=== PATIENT | male | born 1950 | race Caucasian/White ===

== ENCOUNTER 2021-08-28 03:58 | Inpatient (IN) | payer OTHER, MEDICARE ==
[2021-08-28] VITALS (16 sets, daily range): BP systolic 113–158; BP diastolic 59–90
[~2021-08-28] VITALS: Ht 175.3 cm; Wt 108.2 kg
[2021-08-28 04:29] LABS: BASOPHILS # (AUTO) 0.1 X10'3 (0-0.2); BASOPHILS % (AUTO) 0.5 % (0-1); EOSINOPHILS # (AUTO) 0.3 X10'3 (0-0.9); EOSINOPHILS % (AUTO) 2.7 % (0-6); HEMATOCRIT 41.7 % (42.0-52.0); HEMOGLOBIN 14.3 g/dl (14.0-17.9); LYMPHOCYTES # (AUTO) 1.8 X10'3 (1.1-4.8); LYMPHOCYTES % (AUTO) 17.8 % (21-51); MEAN CORPUSCULAR HEMOGLOBIN 36.2 PG (27.0-31.0); MEAN CORPUSCULAR HGB CONC 34.3 g/dL (33.0-36.5); MEAN CORPUSCULAR VOLUME 105.6 FL (78-98); MEAN PLATELET VOLUME 8.7 FL (7.4-10.4); MONOCYTES # (AUTO) 0.7 X10'3 (0-0.9); MONOCYTES % (AUTO) 7.1 % (2-12); NEUTROPHILS # (AUTO) 7.3 X10'3 (1.8-7.7); NEUTROPHILS % (AUTO) 71.9 % (42-75); PLATELET COUNT 178 X10'3 (140-440); RED BLOOD COUNT 3.95 X10'6 (4.70-6.10); RED CELL DISTRIBUTION WIDTH 13.3 % (11.5-14.5); WHITE BLOOD COUNT 10.1 X10'3 (4.5-11.0)
[2021-08-28] MEDS ORDERED: LIDOcaine 2% 10ml TOPICAL JELLY (Urojet) TP ONE ×2 (04:30→04:40)
[2021-08-28] MEDS ORDERED: METO-467 PO (04:32)
[2021-08-28] MEDS ORDERED: METF-436 PO (04:32)
[2021-08-28 04:40] LABS: APTT 27 SECONDS (22-32)
[2021-08-28] MEDS ORDERED: HYDROmorphone inj. 0.5 MG/0.5 ML DISP.SYRIN IV ONE ×3 (04:50→06:15)
[2021-08-28 04:51] LABS: ALANINE AMINOTRANSFERASE 27 U/L (12-78); ALBUMIN 3.2 G/DL (3.4-5.0); ANION GAP 11 (8-16); ASPARTATE AMINO TRANSFERASE 29 U/L (10-37); BILIRUBIN,TOTAL 0.6 MG/DL (0.1-1.0); BLOOD UREA NITROGEN 12 MG/DL (7-18); BUN/CREATININE RATIO 13.2 (5.4-32.0); CALCIUM 8.3 MG/DL (8.5-10.1); CHLORIDE 109 MMOL/L (99-107); CREATININE 0.91 MG/DL (0.60-1.10); GLUCOSE 135 MG/DL (70-104); MAGNESIUM 1.5 MG/DL (1.5-2.4); POTASSIUM 3.8 MMOL/L (3.5-5.1); SODIUM 145 MMOL/L (135-145); TOTAL CARBON DIOXIDE 25.3 MMOL/L (24-32); TOTAL PROTEIN 6.3 G/DL (6.4-8.2); eGFR 82 ML/MIN
[2021-08-28] MEDS: metoprolol tartrate 1mg/ml inj IV SCH ×6 (05:05→06:20)
[2021-08-28] MEDS ORDERED: thiamine 100mg tablet PO STA (05:05)
[2021-08-28] MEDS ORDERED: thiamine 100mg tablet PO ONE (05:05)
[2021-08-28] MEDS ORDERED: magnesium oxide 400mg tablet PO ONE (05:05)
[2021-08-28] MEDS ORDERED: magnesium 2GM in 50ml NS 50 ML IV ONE ×2 (05:05→05:10)
[2021-08-28] MEDS ORDERED: magnesium 2GM in 50ml NS 50 ML IV PRN (05:15)
[2021-08-28] MEDS ORDERED: magnesium Cl slow-release 64mg tablet PO PRN (05:15)
[2021-08-28] MEDS ORDERED: potassium CL 10mEq/100ml bag 100 ML IV PRN (05:15)
[2021-08-28] MEDS ORDERED: magnesium hydroxide 30ml (MOM) UD suspension PO PRN (05:15)
[2021-08-28] MEDS ORDERED: ondansetron/PF 4mg/2ml inj IV PRN ×2 (05:15→18:30)
[2021-08-28] MEDS ORDERED: potassium Cl 20 mEq SR tablet PO PRN ×2 (05:15)
[2021-08-28] MEDS ORDERED: mag hydrox/Alum hydrox/simeth 30ml oral suspension PO PRN (05:15)
[2021-08-28] MEDS ORDERED: magnesium 4gm in 100ml NS 100 ML IV PRN (05:15)
[2021-08-28] MEDS ORDERED: LORazepam 1 MG tablet PO PRN (05:20)
[2021-08-28] MEDS ORDERED: insulin Lispro (HumaLOG) vial - multi-dose SQ SCH (05:25)
[2021-08-28] MEDS ORDERED: glucagon, human recombinant 1mg kit SUBCUT PRN (05:25)
[2021-08-28] MEDS ORDERED: DEXTROSE 15 GM of carb/4 tabs (each vial/BOTTLE has 4 tablets) PO PRN ×2 (05:25)
[2021-08-28] MEDS ORDERED: metoprolol tartrate 25mg tablet PO ONE (05:25)
[2021-08-28] MEDS ORDERED: MESSAGE TO PHARMACY PO ONE (05:25)
[2021-08-28] MEDS ORDERED: dextrose 50%-water 50ml dispensing syringe IV PRN ×2 (05:25)
[2021-08-28] MEDS: normal saline 1000ml 1,000 ML IV SCH ×2 (05:33→21:55)
--- NOTE | 2021-08-28 07:21 | NUR ---
ACCBOB 125 Addendum: 08/28/21 at 1931 by Caryl Quintana RN RN Amended: Links added.
--- NOTE | 2021-08-28 07:42 | NUR ---
ECHO AT BEDSIDE
[2021-08-28] MEDS ORDERED: metoprolol tartrate 50mg tablet PO SCH (08:00)
[2021-08-28 08:20] LABS: HEMOGLOBIN A1C 6.1 % (4.5-6.2)
[2021-08-28 08:46] LABS: POTASSIUM 3.9 MMOL/L (3.5-5.1)
[2021-08-28] MEDS ORDERED: ringers solution, lacted 1,000 ML IV ONE (09:00)
[2021-08-28] MEDS ORDERED: famotidine/PF 10 mg/ml inj IV ONE (09:05)
--- NOTE | 2021-08-28 11:39 | NUR ---
Paged Dr Tolbert PAGER ID: [phone] MESSAGE: [phone]. Navjot Mcclelland. Allergies: codeine, needs pain medication. Thanks [phone]
[2021-08-28] MEDS: acetaminophen 325mg tablet PO PRN (11:50)
[2021-08-28] MEDS ORDERED: HYDROmorphone inj. 0.5 MG/0.5 ML DISP.SYRIN IV PRN (12:00)
--- NOTE | 2021-08-28 13:28 | NUR ---
D/C'd PIV - infiltrated and was hurting patient. Paged PICC nurse to assist with PIV insertion IZAIAH.
--- NOTE | 2021-08-28 13:34 | NUR ---
Called OR to advise of d/c'd PIV - atttemps x 3 for new one. Will continue to get assistance for PIV insertion.
--- NOTE | 2021-08-28 16:15 | NUR ---
Paged Dr Tolbert PAGER ID: [phone] MESSAGE: [phone]. Navjot Mcclelland. Pt requesting more pain meds - Pain 04/14. Thanks [phone]
[2021-08-28] MEDS ORDERED: HYDROmorphone 1 mg/ml syringe IV PRN (16:25)
[2021-08-28] MEDS ORDERED: MINO10TA16 PO (17:06)
[2021-08-28] MEDS ORDERED: METF-900 PO (17:06)
[2021-08-28] MEDS ORDERED: CARV25TA2 PO (17:06)
[2021-08-28] MEDS ORDERED: MULT-1085 PO (17:06)
[2021-08-28] MEDS ORDERED: CHOL500050 PO (17:06)
[2021-08-28] MEDS ORDERED: fentaNYL /PF 50mcg/ml 5ml ampule ONE (17:54)
[2021-08-28] MEDS ORDERED: LIDOcaine 2% (20mg/ml) 5ml vial ONE (18:18)
[2021-08-28] MEDS ORDERED: propofol inj 20 ML IV ONE (18:18)
[2021-08-28] MEDS ORDERED: rocuronium 10mg/ml inj IV ONE (18:18)
[2021-08-28] MEDS ORDERED: morphine 2 MG/ML inj. syringe IV PRN (18:30)
[2021-08-28] MEDS ORDERED: ringers solution, lacted 1,000 ML IV SCH (18:30)
[2021-08-28] MEDS ORDERED: HYDROmorphone/PF 0.2 MG/ML SYRINGE IV PRN ×2 (18:30)
[2021-08-28] MEDS ORDERED: BUPIVAcaine 0.5% inj/PF 30 ML ONE (18:36)
[2021-08-28] MEDS ORDERED: neostigmine methylsulfate 1 MG/ML 10ml vial ONE (18:37)
[2021-08-28] MEDS ORDERED: glycopyrrolate 0.2mg/ml inj ONE (18:37)
[2021-08-28] MEDS ORDERED: ondansetron/PF 4mg/2ml inj ONE (18:37)
--- NOTE | 2021-08-28 18:52 | NUR ---
Received from OR via HOSPITAL BED, accompanied by Anesthesiologist DR WALDRON and report given by Anesthesiolgist. PT PRESENT WITH 20G RIGHT FOREARM, DRESSING ON LEFT HIP CLEAN DRY AND INTACT. VSS. Addendum: 08/28/21 at 1931 by Caryl Quintana RN, RN Amended: Links added.
[2021-08-28] MEDS ORDERED: sugammadex 200mg/2ml injection IV ONE (18:54)
[2021-08-28] MEDS ORDERED: ceFAZolin 1000mg inj ONE (19:06)
[2021-08-28] MEDS: K and/or MAG REPLACEMENT MC SCH (20:00)
--- NOTE | 2021-08-28 20:12 | NUR ---
Report called to receiving nurse ENRIQUETA BOYLE. Transferred via HOSPITAL BED TO ROOM 3023C WITH PT Belongings LEFT IN PT ROOM 3023C. BED IN LOW LOCKED POSITION WITH CALL LIGHT AND TV IN REACH. special Issues communicated to receiving nurse. Addendum: 08/28/21 at 2025 by Caryl Quintana RN RN Amended: Links added.
[2021-08-28] MEDS: insulin glargine (Lantus) pen - multi-dose SQ SCH (20:52)
[2021-08-28] MEDS: metoprolol tartrate 50mg tablet PO SCH (21:10)
[2021-08-28] MEDS: docusate sod 100mg capsule PO SCH (21:11)
[2021-08-28] MEDS ORDERED: heparin, porcine 5000 units/ml vial SQ SCH (22:00)
[2021-08-28] MEDS: HYDROcodone/acetaminophen 10/325mg tab PO PRN (23:01)
[2021-08-29] VITALS (7 sets, daily range): BP systolic 117–175; BP diastolic 59–95
[2021-08-29] MEDS: ceFAZolin/D5W- 1GM premix 50 ML IV SCH ×2 (00:20→08:00)
--- NOTE | 2021-08-29 06:28 | NUR ---
Problems reprioritized. Patient report given, questions answered & plan of care reviewed with TAMAR Ron.
[2021-08-29 06:36] LABS: BASOPHILS # (AUTO) 0.1 X10'3 (0-0.2); BASOPHILS % (AUTO) 0.8 % (0-1); EOSINOPHILS # (AUTO) 0.2 X10'3 (0-0.9); HEMATOCRIT 36.4 % (42.0-52.0); HEMOGLOBIN 12.4 g/dl (14.0-17.9); LYMPHOCYTES # (AUTO) 1.3 X10'3 (1.1-4.8); LYMPHOCYTES % (AUTO) 15.6 % (21-51); MEAN CORPUSCULAR HEMOGLOBIN 36.2 PG (27.0-31.0); MEAN CORPUSCULAR HGB CONC 34.2 g/dL (33.0-36.5); MONOCYTES # (AUTO) 0.6 X10'3 (0-0.9); MONOCYTES % (AUTO) 7.1 % (2-12); NEUTROPHILS # (AUTO) 6.3 X10'3 (1.8-7.7); NEUTROPHILS % (AUTO) 74.5 % (42-75); PLATELET COUNT 139 X10'3 (140-440); RED BLOOD COUNT 3.44 X10'6 (4.70-6.10); RED CELL DISTRIBUTION WIDTH 13.2 % (11.5-14.5); WHITE BLOOD COUNT 8.4 X10'3 (4.5-11.0)
[2021-08-29 07:01] LABS: ALANINE AMINOTRANSFERASE 23 U/L (12-78); ALBUMIN 2.9 G/DL (3.4-5.0); ALBUMIN/GLOBULIN RATIO 1.2 (1.1-1.5); ALKALINE PHOSPHATASE 86 IU/L (46-116); ANION GAP 9 (8-16); ASPARTATE AMINO TRANSFERASE 21 U/L (10-37); BLOOD UREA NITROGEN 12 MG/DL (7-18); BUN/CREATININE RATIO 14.6 (5.4-32.0); CALCIUM 7.9 MG/DL (8.5-10.1); CHLORIDE 107 MMOL/L (99-107); CREATININE 0.82 MG/DL (0.60-1.10); GLUCOSE 128 MG/DL (70-104); POTASSIUM 4.1 MMOL/L (3.5-5.1); SODIUM 143 MMOL/L (135-145); TOTAL CARBON DIOXIDE 26.9 MMOL/L (24-32); TOTAL PROTEIN 5.4 G/DL (6.4-8.2); eGFR > 90 ML/MIN
--- NOTE | 2021-08-29 07:02 | NUR ---
Diabetes consult: Noted pt w/ hx of T2DM A1c 6.1 well controlled, DM ed not indicated at this time Addendum: 08/29/21 at [address] Amended: Links added.
[2021-08-29] MEDS: K and/or MAG REPLACEMENT MC SCH ×2 (08:00→19:52)
[2021-08-29] MEDS: docusate sod 100mg capsule PO SCH ×2 (08:09→20:00)
[2021-08-29] MEDS: metoprolol tartrate 50mg tablet PO SCH ×2 (08:10→21:56)
[2021-08-29] MEDS: HYDROcodone/acetaminophen 10/325mg tab PO PRN ×2 (08:11→12:24)
--- NOTE | 2021-08-29 10:11 | NUR ---
PAGER ID: [phone] MESSAGE: PATIENT [id number] KATIE Anguiano IS A SMOKER AND WILL LIKE A PATCH . LIONEL BOYLE
[2021-08-29] MEDS: LORazepam 2 mg/ml vial IV PRN ×3 (14:02→21:49)
[2021-08-29] MEDS: normal saline 1000ml 1,000 ML IV SCH (14:35)
[2021-08-29] MEDS ORDERED: PERFLUTREN PROTEIN-A MICROSPHR (Optison) 0.22 MG/ML 3ML VIAL IV ONE (15:35)
[2021-08-29] MEDS: insulin glargine (Lantus) pen - multi-dose SQ SCH (21:00)
[2021-08-29] MEDS: enoxaparin 40mg/0.4ml syringe SUBCUT SCH (21:50)
[2021-08-30 02:00] VITALS: BP 153/89
[2021-08-30 06:00] VITALS: BP 151/86
--- NOTE | 2021-08-30 06:15 | NUR ---
Problems reprioritized. Patient report given, questions answered & plan of care reviewed with TAMAR Ron.
[2021-08-30 07:43] LABS: BASOPHILS % (AUTO) 0.3 % (0-1); EOSINOPHILS # (AUTO) 0.1 X10'3 (0-0.9); EOSINOPHILS % (AUTO) 0.9 % (0-6); HEMATOCRIT 35.5 % (42.0-52.0); HEMOGLOBIN 12.3 g/dl (14.0-17.9); LYMPHOCYTES # (AUTO) 1.5 X10'3 (1.1-4.8); LYMPHOCYTES % (AUTO) 13.5 % (21-51); MEAN CORPUSCULAR HEMOGLOBIN 36.6 PG (27.0-31.0); MEAN CORPUSCULAR HGB CONC 34.6 g/dL (33.0-36.5); MEAN CORPUSCULAR VOLUME 105.8 FL (78-98); MEAN PLATELET VOLUME 9.2 FL (7.4-10.4); MONOCYTES # (AUTO) 0.9 X10'3 (0-0.9); MONOCYTES % (AUTO) 8.4 % (2-12); NEUTROPHILS # (AUTO) 8.7 X10'3 (1.8-7.7); NEUTROPHILS % (AUTO) 76.9 % (42-75); PLATELET COUNT 141 X10'3 (140-440); RED BLOOD COUNT 3.36 X10'6 (4.70-6.10); RED CELL DISTRIBUTION WIDTH 13.3 % (11.5-14.5); WHITE BLOOD COUNT 11.3 X10'3 (4.5-11.0)
[2021-08-30] MEDS: docusate sod 100mg capsule PO SCH ×2 (07:57→20:33)
[2021-08-30] MEDS: metoprolol tartrate 50mg tablet PO SCH ×2 (07:58→20:44)
[2021-08-30] MEDS: LORazepam 2 mg/ml vial IV PRN (07:58)
[2021-08-30 08:08] LABS: GLUCOSE 117 MG/DL (70-104)
[2021-08-30 08:09] LABS: ALANINE AMINOTRANSFERASE 21 U/L (12-78); ALBUMIN 2.9 G/DL (3.4-5.0); ALKALINE PHOSPHATASE 110 IU/L (46-116); ANION GAP 12 (8-16); ASPARTATE AMINO TRANSFERASE 31 U/L (10-37); BILIRUBIN,TOTAL 1.7 MG/DL (0.1-1.0); BLOOD UREA NITROGEN 10 MG/DL (7-18); BUN/CREATININE RATIO 10.8 (5.4-32.0); CALCIUM 8.1 MG/DL (8.5-10.1); CHLORIDE 102 MMOL/L (99-107); CREATININE 0.93 MG/DL (0.60-1.10); POTASSIUM 4.2 MMOL/L (3.5-5.1); SODIUM 140 MMOL/L (135-145); TOTAL CARBON DIOXIDE 26.3 MMOL/L (24-32); TOTAL PROTEIN 5.8 G/DL (6.4-8.2); eGFR 80 ML/MIN
[2021-08-30 11:00] VITALS: BP 154/66
[2021-08-30] MEDS: HYDROcodone/acetaminophen 10/325mg tab PO PRN (14:15)
[2021-08-30 15:00] VITALS: BP 152/73
[2021-08-30] MEDS ORDERED: haloperidol lactate 5mg/ml inj IM PRN (15:35)
[2021-08-30] MEDS ORDERED: LORazepam 2 mg/ml vial IV PRN (15:35)
[2021-08-30] MEDS ORDERED: haloperidol 5mg tablet PO PRN (15:35)
--- NOTE | 2021-08-30 16:10 | NUR ---
paged case management for family about rehab BALWINDER is aware and she is looking for rehab none at the moment.
[2021-08-30] MEDS: K and/or MAG REPLACEMENT MC SCH (19:30)
[2021-08-30] MEDS: enoxaparin 40mg/0.4ml syringe SUBCUT SCH (20:33)
[2021-08-30 20:38] VITALS: BP 164/98
[2021-08-31] MEDS: HYDROcodone/acetaminophen 10/325mg tab PO PRN ×3 (01:16→15:53)
[2021-08-31 06:00] VITALS: BP 156/90
--- NOTE | 2021-08-31 06:50 | NUR ---
Problems reprioritized. Patient report given, questions answered & plan of care reviewed with TAMAR Ron.
[2021-08-31] MEDS: docusate sod 100mg capsule PO SCH ×2 (08:43→20:14)
[2021-08-31] MEDS: metoprolol tartrate 50mg tablet PO SCH ×2 (08:44→20:14)
[2021-08-31 08:50] LABS: BASOPHILS # (AUTO) 0.1 X10'3 (0-0.2); BASOPHILS % (AUTO) 0.6 % (0-1); EOSINOPHILS # (AUTO) 0.2 X10'3 (0-0.9); EOSINOPHILS % (AUTO) 2.6 % (0-6); HEMATOCRIT 33.7 % (42.0-52.0); HEMOGLOBIN 11.6 g/dl (14.0-17.9); LYMPHOCYTES # (AUTO) 1.5 X10'3 (1.1-4.8); LYMPHOCYTES % (AUTO) 17.6 % (21-51); MEAN CORPUSCULAR HEMOGLOBIN 36.4 PG (27.0-31.0); MEAN CORPUSCULAR HGB CONC 34.5 g/dL (33.0-36.5); MEAN CORPUSCULAR VOLUME 105.6 FL (78-98); MEAN PLATELET VOLUME 9.8 FL (7.4-10.4); MONOCYTES # (AUTO) 0.9 X10'3 (0-0.9); MONOCYTES % (AUTO) 10.7 % (2-12); NEUTROPHILS # (AUTO) 5.9 X10'3 (1.8-7.7); NEUTROPHILS % (AUTO) 68.5 % (42-75); PLATELET COUNT 139 X10'3 (140-440); RED CELL DISTRIBUTION WIDTH 12.9 % (11.5-14.5); WHITE BLOOD COUNT 8.6 X10'3 (4.5-11.0)
[2021-08-31 09:39] LABS: ALANINE AMINOTRANSFERASE 25 U/L (12-78); ALBUMIN 2.5 G/DL (3.4-5.0); ALBUMIN/GLOBULIN RATIO 0.9 (1.1-1.5); ALKALINE PHOSPHATASE 107 IU/L (46-116); AMYLASE 35 U/L (25-115); ANION GAP 9 (8-16); ASPARTATE AMINO TRANSFERASE 30 U/L (10-37); BILIRUBIN,TOTAL 1.4 MG/DL (0.1-1.0); BLOOD UREA NITROGEN 11 MG/DL (7-18); BUN/CREATININE RATIO 12.9 (5.4-32.0); CALCIUM 8.1 MG/DL (8.5-10.1); CHLORIDE 102 MMOL/L (99-107); CREATININE 0.85 MG/DL (0.60-1.10); GLUCOSE 121 MG/DL (70-104); LIPASE 75 U/L (73-393); MAGNESIUM 1.7 MG/DL (1.5-2.4); PHOSPHORUS 2.2 MG/DL (2.3-4.5); POTASSIUM 3.5 MMOL/L (3.5-5.1); SODIUM 137 MMOL/L (135-145); TOTAL CARBON DIOXIDE 26.5 MMOL/L (24-32); TOTAL PROTEIN 5.3 G/DL (6.4-8.2); eGFR 89 ML/MIN
[2021-08-31 11:00] VITALS: BP 156/77
[2021-08-31 15:00] VITALS: BP 158/74
[2021-08-31 19:00] VITALS: BP 133/54
[2021-08-31] MEDS: K and/or MAG REPLACEMENT MC SCH ×2 (19:00→20:10)
[2021-08-31] MEDS: LORazepam 1 MG tablet PO PRN (20:08)
[2021-08-31] MEDS: enoxaparin 40mg/0.4ml syringe SUBCUT SCH (20:13)
[2021-08-31 22:00] VITALS: BP 128/65
--- NOTE | 2021-08-31 23:30 | NUR ---
Patient found on the floor on his right side.Confused stating he was trying to get a cigarette.Patient was placed back in bed with total assistance from staff.Patient complain of his head hurting.IV in right hand came out. 1;1 sitter is at the bedside and called. Addendum: 09/01/21 at 0215 by Vivian Jiménez RN Vital signs bp199/94 pulse96 T97.5 95% on 2L N/c.
[2021-09-01] VITALS (7 sets, daily range): BP systolic 98–181; BP diastolic 56–95
--- NOTE | 2021-09-01 | NUR ---
Call placed to Dr. Hartley to notefied of patient falling and orders to be placed. 1:[address] Hartley came and evaluated patient and ordered neuro checks until the next shift and stated patient does not need CT scan of head or xray of hip at this.Vital signs & neuro check within normal limits.
--- NOTE | 2021-09-01 02:00 | NUR ---
Vital signs charted at this time is an error.correct is 0205.
[2021-09-01] MEDS: HYDROcodone/acetaminophen 10/325mg tab PO PRN ×4 (04:42→20:02)
[2021-09-01 06:31] LABS: HEMATOCRIT 34.9 % (42.0-52.0); HEMOGLOBIN 12.4 g/dl (14.0-17.9); MEAN PLATELET VOLUME 9.5 FL (7.4-10.4); RED BLOOD COUNT 3.35 X10'6 (4.70-6.10)
[2021-09-01 06:33] LABS: BASOPHILS % (AUTO) 0.4 % (0-1); EOSINOPHILS # (AUTO) 0.3 X10'3 (0-0.9); EOSINOPHILS % (AUTO) 3.1 % (0-6); LYMPHOCYTES # (AUTO) 1.6 X10'3 (1.1-4.8); LYMPHOCYTES % (AUTO) 18.8 % (21-51); MEAN CORPUSCULAR HGB CONC 35.5 g/dL (33.0-36.5); MEAN CORPUSCULAR VOLUME 104.2 FL (78-98); MONOCYTES % (AUTO) 11.9 % (2-12); NEUTROPHILS # (AUTO) 5.7 X10'3 (1.8-7.7); NEUTROPHILS % (AUTO) 65.8 % (42-75); PLATELET COUNT 163 X10'3 (140-440); RED CELL DISTRIBUTION WIDTH 12.9 % (11.5-14.5); WHITE BLOOD COUNT 8.6 X10'3 (4.5-11.0)
--- NOTE | 2021-09-01 06:42 | NUR ---
Problems reprioritized. Patient report given, questions answered & plan of care reviewed with Magy.
[2021-09-01 07:13] LABS: ALANINE AMINOTRANSFERASE 29 U/L (12-78); ALBUMIN 2.8 G/DL (3.4-5.0); ALKALINE PHOSPHATASE 130 IU/L (46-116); AMYLASE 29 U/L (25-115); ANION GAP 11 (8-16); ASPARTATE AMINO TRANSFERASE 33 U/L (10-37); BILIRUBIN,TOTAL 1.4 MG/DL (0.1-1.0); BLOOD UREA NITROGEN 12 MG/DL (7-18); BUN/CREATININE RATIO 14.1 (5.4-32.0); CALCIUM 8.3 MG/DL (8.5-10.1); CHLORIDE 103 MMOL/L (99-107); CREATININE 0.85 MG/DL (0.60-1.10); GLUCOSE 127 MG/DL (70-104); LIPASE 53 U/L (73-393); MAGNESIUM 1.7 MG/DL (1.5-2.4); PHOSPHORUS 2.2 MG/DL (2.3-4.5); POTASSIUM 3.7 MMOL/L (3.5-5.1); SODIUM 140 MMOL/L (135-145); TOTAL CARBON DIOXIDE 26.1 MMOL/L (24-32); TOTAL PROTEIN 5.7 G/DL (6.4-8.2); eGFR 89 ML/MIN
[2021-09-01] MEDS: K and/or MAG REPLACEMENT MC SCH ×2 (08:00→19:48)
[2021-09-01] MEDS: metoprolol tartrate 50mg tablet PO SCH ×2 (10:27→19:59)
[2021-09-01] MEDS: docusate sod 100mg capsule PO SCH ×2 (10:31→20:00)
[2021-09-01] MEDS: thiamine 100mg tablet PO SCH (10:31)
--- NOTE | 2021-09-01 20:00 | NUR ---
pt complain of pain to the left hip medicated with 1 tab of norco 10/325 mg. Continue with 1:1 sitter at bedside. Bed in low position & side rails up x 2.
[2021-09-01] MEDS: enoxaparin 40mg/0.4ml syringe SUBCUT SCH (20:01)
--- NOTE | 2021-09-01 21:31 | NUR ---
Pt very restless pulled out saline lock .Restarted via NI RN a #22 gauge in the left hand. Remains with 1:1 sitter.
[2021-09-02] VITALS (7 sets, daily range): BP systolic 112–152; BP diastolic 51–87
--- NOTE | 2021-09-02 | NUR ---
patient continues to be very anxious medicated with ativan 2mg po. patient asleep at this time with 1:1 sitter at bedside.Side rails up x 2 & call light in reach.
[2021-09-02] MEDS: LORazepam 1 MG tablet PO PRN (00:04)
[2021-09-02 06:27] LABS: BASOPHILS # (AUTO) 0.1 X10'3 (0-0.2); EOSINOPHILS # (AUTO) 0.4 X10'3 (0-0.9); EOSINOPHILS % (AUTO) 4.7 % (0-6); HEMATOCRIT 34.5 % (42.0-52.0); HEMOGLOBIN 12.1 g/dl (14.0-17.9); LYMPHOCYTES # (AUTO) 2.2 X10'3 (1.1-4.8); LYMPHOCYTES % (AUTO) 27.4 % (21-51); MEAN CORPUSCULAR HEMOGLOBIN 36.7 PG (27.0-31.0); MEAN CORPUSCULAR HGB CONC 35.1 g/dL (33.0-36.5); MEAN CORPUSCULAR VOLUME 104.7 FL (78-98); MEAN PLATELET VOLUME 9.5 FL (7.4-10.4); MONOCYTES % (AUTO) 12.1 % (2-12); NEUTROPHILS # (AUTO) 4.4 X10'3 (1.8-7.7); NEUTROPHILS % (AUTO) 54.8 % (42-75); PLATELET COUNT 176 X10'3 (140-440); RED BLOOD COUNT 3.29 X10'6 (4.70-6.10); RED CELL DISTRIBUTION WIDTH 13.1 % (11.5-14.5)
--- NOTE | 2021-09-02 06:29 | NUR ---
Problems reprioritized. Patient report given, questions answered & plan of care reviewed with Hortensia.
[2021-09-02 07:03] LABS: ALANINE AMINOTRANSFERASE 28 U/L (12-78); ALBUMIN 2.6 G/DL (3.4-5.0); ALBUMIN/GLOBULIN RATIO 0.9 (1.1-1.5); ALKALINE PHOSPHATASE 121 IU/L (46-116); AMYLASE 34 U/L (25-115); ANION GAP 11 (8-16); ASPARTATE AMINO TRANSFERASE 26 U/L (10-37); BILIRUBIN,TOTAL 1.1 MG/DL (0.1-1.0); BLOOD UREA NITROGEN 14 MG/DL (7-18); BUN/CREATININE RATIO 16.5 (5.4-32.0); CALCIUM 8.5 MG/DL (8.5-10.1); CHLORIDE 104 MMOL/L (99-107); CREATININE 0.85 MG/DL (0.60-1.10); GLUCOSE 115 MG/DL (70-104); LIPASE 98 U/L (73-393); MAGNESIUM 1.8 MG/DL (1.5-2.4); PHOSPHORUS 3.2 MG/DL (2.3-4.5); POTASSIUM 3.7 MMOL/L (3.5-5.1); SODIUM 142 MMOL/L (135-145); TOTAL CARBON DIOXIDE 26.6 MMOL/L (24-32); TOTAL PROTEIN 5.5 G/DL (6.4-8.2); eGFR 89 ML/MIN
[2021-09-02] MEDS: K and/or MAG REPLACEMENT MC SCH ×2 (08:00→19:41)
--- NOTE | 2021-09-02 09:17 | NUR ---
Initial: Pt admit dx L hip fracture s/p intramedullary rodding fixation of L hip per EMR. Pt noted to be A&O x2 and somewhat confused per EMR. PO 65% avg regular diet, though 75% most recent meals partially meeting estimated nutrient needs. Left message w/ RN to see if pt would be likely to drink ONS and recommend folic acid as well as multivitamin if MD agreeable considering EtOH hx. LBM 09/01 and receiving routine colace per EMR. Will continue to follow closely. Recommendations: 1. Continue regular diet 2. Ensure High Protein BIDLD; pending physician approval 3. Thiamine, Folic acid and multivitamin given EtoH hx if MD agreeable 4. Routine bowel care 5. Scaled wt this admit, subsequent weekly scaled wts Addendum: 09/02/21 at [address] Amended: Links added. Addendum: 09/02/21 at [address] WILMER has reviewed and approves of above note.
[2021-09-02] MEDS: metoprolol tartrate 50mg tablet PO SCH (09:58)
[2021-09-02] MEDS: HYDROcodone/acetaminophen 10/325mg tab PO PRN ×3 (09:58→19:47)
[2021-09-02] MEDS: thiamine 100mg tablet PO SCH (09:58)
[2021-09-02] MEDS: docusate sod 100mg capsule PO SCH ×2 (09:58→19:47)
--- NOTE | 2021-09-02 18:00 | NUR ---
made aware of temp of 100.4. No new orders.
--- NOTE | 2021-09-02 19:04 | NUR ---
Pt. is AXO3 during the day. He knows he is in [place] at the hospital, knows the reason he was admitted for. Can hold a coherent conversation. Follows all commands and is cooperative. Is not impulsive during the day.
[2021-09-02] MEDS: carVEDilol 12.5mg tablet PO SCH (19:47)
[2021-09-02] MEDS: enoxaparin 40mg/0.4ml syringe SUBCUT SCH (19:48)
[2021-09-02] MEDS: acetaminophen 325mg tablet PO PRN (19:49)
[2021-09-03 02:00] VITALS: BP 130/62
[2021-09-03] MEDS: HYDROcodone/acetaminophen 10/325mg tab PO PRN ×4 (04:01→21:36)
--- NOTE | 2021-09-03 05:00 | NUR ---
Patient complain of left hip pain medicated with norco 10/325 mg 1 tab with side rails up x 2.
[2021-09-03 06:00] VITALS: BP 118/53
[2021-09-03 06:39] LABS: MAGNESIUM 1.9 MG/DL (1.5-2.4); PHOSPHORUS 3.4 MG/DL (2.3-4.5)
--- NOTE | 2021-09-03 06:56 | NUR ---
Problems reprioritized. Patient report given, questions answered & plan of care reviewed with Valencia.
[2021-09-03] MEDS: K and/or MAG REPLACEMENT MC SCH ×2 (08:00→20:00)
[2021-09-03] MEDS: cholecalciferol (vitamin D3) 1,000 unit (25mcg) tablet PO SCH (08:09)
[2021-09-03] MEDS: carVEDilol 12.5mg tablet PO SCH ×2 (08:10→21:36)
[2021-09-03] MEDS: thiamine 100mg tablet PO SCH (08:10)
[2021-09-03] MEDS: docusate sod 100mg capsule PO SCH ×2 (08:11→20:00)
[2021-09-03] MEDS: multivitamins, therapeutics tablet PO SCH (08:11)
[2021-09-03] MEDS: minoxidil 2.5mg tablet PO SCH (08:12)
[2021-09-03 11:00] VITALS: BP 129/70
[2021-09-03] MEDS: lactose-reduced food (Ensure High Protein) 237ml bottle PO SCH ×3 (12:30→18:30)
[2021-09-03 15:00] VITALS: BP 125/53
[2021-09-03 18:00] VITALS: BP 128/76
[2021-09-03] MEDS: enoxaparin 40mg/0.4ml syringe SUBCUT SCH (21:37)
[2021-09-03 22:00] VITALS: BP 149/78
[2021-09-04] VITALS (7 sets, daily range): BP systolic 92–145; BP diastolic 42–70
[2021-09-04 07:05] LABS: MAGNESIUM 1.9 MG/DL (1.5-2.4); PHOSPHORUS 3.7 MG/DL (2.3-4.5)
[2021-09-04] MEDS: multivitamins, therapeutics tablet PO SCH (07:18)
[2021-09-04] MEDS: carVEDilol 12.5mg tablet PO SCH ×2 (07:18→20:34)
[2021-09-04] MEDS: cholecalciferol (vitamin D3) 1,000 unit (25mcg) tablet PO SCH (07:18)
[2021-09-04] MEDS: docusate sod 100mg capsule PO SCH ×2 (07:19→20:00)
[2021-09-04] MEDS: HYDROcodone/acetaminophen 10/325mg tab PO PRN ×3 (07:20→20:33)
[2021-09-04] MEDS: minoxidil 2.5mg tablet PO SCH (07:21)
[2021-09-04] MEDS: thiamine 100mg tablet PO SCH (07:21)
[2021-09-04] MEDS: K and/or MAG REPLACEMENT MC SCH ×2 (08:00→20:00)
[2021-09-04] MEDS: lactose-reduced food (Ensure High Protein) 237ml bottle PO SCH ×2 (12:30→18:30)
--- NOTE | 2021-09-04 18:53 | NUR ---
Patient in room PCU 3023. I have received report from TAMAR [place] and had the opportunity to ask questions and assume patient care.
[2021-09-04] MEDS: enoxaparin 40mg/0.4ml syringe SUBCUT SCH (20:37)
[2021-09-05] MEDS: HYDROcodone/acetaminophen 10/325mg tab PO PRN ×4 (01:57→20:22)
[2021-09-05 02:00] VITALS: BP 125/56
[2021-09-05 06:00] VITALS: BP 128/62
--- NOTE | 2021-09-05 06:26 | NUR ---
Problems reprioritized. Patient report given, questions answered & plan of care reviewed with TAMAR [place].
[2021-09-05] MEDS: K and/or MAG REPLACEMENT MC SCH ×2 (08:00→20:00)
[2021-09-05] MEDS: cholecalciferol (vitamin D3) 1,000 unit (25mcg) tablet PO SCH (08:33)
[2021-09-05] MEDS: multivitamins, therapeutics tablet PO SCH (08:34)
[2021-09-05] MEDS: docusate sod 100mg capsule PO SCH ×2 (08:34→20:15)
[2021-09-05] MEDS: carVEDilol 12.5mg tablet PO SCH ×2 (08:35→20:15)
[2021-09-05] MEDS: thiamine 100mg tablet PO SCH (08:36)
[2021-09-05] MEDS: minoxidil 2.5mg tablet PO SCH (08:36)
[2021-09-05 11:00] VITALS: BP 122/74
[2021-09-05] MEDS: lactose-reduced food (Ensure High Protein) 237ml bottle PO SCH (12:30)
[2021-09-05 15:00] VITALS: BP 133/67
[2021-09-05 18:00] VITALS: BP 133/70
--- NOTE | 2021-09-05 18:35 | NUR ---
Patient in room PCU 3023. I have received report from TAMAR [place] and had the opportunity to ask questions and assume patient care. Pt for possible D/C to Rehab tomorrow.
[2021-09-05] MEDS: enoxaparin 40mg/0.4ml syringe SUBCUT SCH (20:15)
[2021-09-05] MEDS ORDERED: bisacodyl 5mg tablet.DR PO ONE (21:00)
[2021-09-05 22:00] VITALS: BP 152/71
[2021-09-06] MEDS: HYDROcodone/acetaminophen 10/325mg tab PO PRN ×4 (01:30→20:27)
[2021-09-06 02:00] VITALS: BP 98/66
[2021-09-06 06:00] VITALS: BP 114/54
--- NOTE | 2021-09-06 06:39 | NUR ---
Problems reprioritized. Patient report given, questions answered & plan of care reviewed with TAMAR [place], and Student Elen. .
[2021-09-06] MEDS: minoxidil 2.5mg tablet PO SCH (07:34)
[2021-09-06] MEDS: multivitamins, therapeutics tablet PO SCH (07:34)
[2021-09-06] MEDS: carVEDilol 12.5mg tablet PO SCH ×2 (07:35→20:27)
[2021-09-06] MEDS: cholecalciferol (vitamin D3) 1,000 unit (25mcg) tablet PO SCH (07:35)
[2021-09-06] MEDS: docusate sod 100mg capsule PO SCH ×2 (07:35→20:28)
[2021-09-06] MEDS: thiamine 100mg tablet PO SCH (07:35)
[2021-09-06] MEDS: K and/or MAG REPLACEMENT MC SCH ×2 (08:00→19:27)
--- NOTE | 2021-09-06 12:58 | NUR ---
Reassessment: Pt changed to mechanical soft/chop all diet as he is edentulous, however kitchen was not sending w/ avg 54% PO intake D/w dietary to send appropriate diet per rx. Pt receiving Ensure High Protein BIDLD, though w/ only 0-25% avg PO first two supplements partially meeting estimated nutrient needs. Will monitor trends in PO intake w/ new texture modification and need for additional nutrition intervention. LBM 3/, receiving routine colace and received one time dose Dulcolax 09/05. Will continue to follow. Recommendations: 1. Continue mechanical soft/chop all diet as tolerated 2. Ensure High Protein BIDLD; consider discontinuing if pt not accepting 3. Thiamine and multivitamin given EtoH hx 4. Routine bowel care 5. Scaled wt this admit, subsequent weekly scaled wts Addendum: 09/06/21 at [address] Amended: Links added. Addendum: 09/06/21 at [address] I have reviewed and agree with note by [employer]spring Assembler. WILMER Brenner
[2021-09-06 16:19] VITALS: BP 99/42
[2021-09-06 18:00] VITALS: BP 131/70
--- NOTE | 2021-09-06 18:35 | NUR ---
Patient in room PCU 3023. I have received report from TAMAR [place] and had the opportunity to ask questions and assume patient care.
[2021-09-06] MEDS: enoxaparin 40mg/0.4ml syringe SUBCUT SCH (20:28)
[2021-09-06 22:00] VITALS: BP 110/51
[2021-09-07] MEDS: HYDROcodone/acetaminophen 10/325mg tab PO PRN ×3 (00:20→20:02)
[2021-09-07 02:00] VITALS: BP 126/56
--- NOTE | 2021-09-07 05:15 | NUR ---
Pt awake, called ,states, he wants to have a BM assisted with bedpan,pt straining,had small amount of soft form stool,encouraged lots of oral fluid, wants him to have prune juice, non in nutrition room at present, offered orange juice, drank 4 packets. no distress noted, will continue to monitor.
[2021-09-07 06:00] VITALS: BP 126/56
--- NOTE | 2021-09-07 06:20 | NUR ---
Problems reprioritized. Patient report given, questions answered & plan of care reviewed with TAMAR Shaikh.
[2021-09-07] MEDS: K and/or MAG REPLACEMENT MC SCH ×2 (08:00→19:42)
[2021-09-07 08:02] LABS: BASOPHILS # (AUTO) 0.1 X10'3 (0-0.2); EOSINOPHILS # (AUTO) 0.2 X10'3 (0-0.9); HEMATOCRIT 34.4 % (42.0-52.0); HEMOGLOBIN 11.9 g/dl (14.0-17.9); LYMPHOCYTES % (AUTO) 17.8 % (21-51); MEAN CORPUSCULAR HEMOGLOBIN 35.4 PG (27.0-31.0); MEAN CORPUSCULAR HGB CONC 34.6 g/dL (33.0-36.5); MEAN CORPUSCULAR VOLUME 102.4 FL (78-98); MEAN PLATELET VOLUME 9.2 FL (7.4-10.4); MONOCYTES # (AUTO) 0.9 X10'3 (0-0.9); MONOCYTES % (AUTO) 8.4 % (2-12); NEUTROPHILS # (AUTO) 7.9 X10'3 (1.8-7.7); NEUTROPHILS % (AUTO) 70.8 % (42-75); PLATELET COUNT 302 X10'3 (140-440); RED BLOOD COUNT 3.36 X10'6 (4.70-6.10); RED CELL DISTRIBUTION WIDTH 12.9 % (11.5-14.5); WHITE BLOOD COUNT 11.1 X10'3 (4.5-11.0)
--- NOTE | 2021-09-07 08:36 | NUR ---
PAGER ID: [phone] MESSAGE: Karel is having pain 10/10 in rectum. He had colace and biscodyl last night. The [place] didn't touch his pain. He also should be on etoh protocol but has no Ativan ordered. Please advise Hawa BOYLE ext [phone]
[2021-09-07] MEDS: cholecalciferol (vitamin D3) 1,000 unit (25mcg) tablet PO SCH (08:45)
[2021-09-07] MEDS: docusate sod 100mg capsule PO SCH ×2 (08:45→19:52)
[2021-09-07] MEDS: multivitamins, therapeutics tablet PO SCH (08:45)
[2021-09-07] MEDS: carVEDilol 12.5mg tablet PO SCH ×2 (08:46→20:00)
[2021-09-07 08:49] LABS: ALANINE AMINOTRANSFERASE 34 U/L (12-78); ALBUMIN 2.8 G/DL (3.4-5.0); ALBUMIN/GLOBULIN RATIO 0.8 (1.1-1.5); ALKALINE PHOSPHATASE 128 IU/L (46-116); ANION GAP 10 (8-16); ASPARTATE AMINO TRANSFERASE 24 U/L (10-37); BILIRUBIN,TOTAL 0.6 MG/DL (0.1-1.0); BLOOD UREA NITROGEN 21 MG/DL (7-18); BUN/CREATININE RATIO 20.6 (5.4-32.0); CALCIUM 9.1 MG/DL (8.5-10.1); CHLORIDE 104 MMOL/L (99-107); CREATININE 1.02 MG/DL (0.60-1.10); GLUCOSE 163 MG/DL (70-104); MAGNESIUM 2.1 MG/DL (1.5-2.4); POTASSIUM 3.6 MMOL/L (3.5-5.1); SODIUM 138 MMOL/L (135-145); TOTAL CARBON DIOXIDE 23.9 MMOL/L (24-32); TOTAL PROTEIN 6.3 G/DL (6.4-8.2); eGFR 72 ML/MIN
[2021-09-07] MEDS: thiamine 100mg tablet PO SCH (08:52)
[2021-09-07] MEDS: minoxidil 2.5mg tablet PO SCH (08:52)
[2021-09-07 11:00] VITALS: BP 138/75
[2021-09-07] MEDS: lactose-reduced food (Ensure High Protein) 237ml bottle PO SCH ×2 (12:30→17:30)
--- NOTE | 2021-09-07 19:25 | NUR ---
Patient in room PCU 3023. I have received report from GILBERT BOYLE and had the opportunity to ask questions and assume patient care.
[2021-09-07] MEDS: enoxaparin 40mg/0.4ml syringe SUBCUT SCH (20:03)
[2021-09-07 21:00] VITALS: BP 142/76
--- NOTE | 2021-09-07 21:00 | NUR ---
PATIENT FELL WHILE TRYING TO AMBULATE TO THE TOILET. NO BLEEDING PRESENT AND VITAL SIGN BP 142/76, T 97.9, HR 80, RR 20, O2 9A ON RA. MERCHANDISE WORKER NOTIFIED AND HOSPITALIST PAGED PER HOSPITAL POLICY. WILL CONTINUE TO MONITOR
[2021-09-08] MEDS: HYDROcodone/acetaminophen 10/325mg tab PO PRN ×6 (00:47→23:10)
[2021-09-08 02:50] VITALS: BP 104/77
--- NOTE | 2021-09-08 06:31 | NUR ---
Patient in room PCU 3023. I have received report from Lydia BOYLE and had the opportunity to ask questions and assume patient care. Patient resting in bed in no acute distress.
--- NOTE | 2021-09-08 06:32 | NUR ---
received report from Lydia. Pt is resting comfortably in bed, no signs of distress.
--- NOTE | 2021-09-08 06:46 | NUR ---
Student documentation: I have reviewed and agree with all interventions, assessments performed and documented by KAREN VELARDE.
--- NOTE | 2021-09-08 06:47 | NUR ---
Student Medication Administration: For this medication-pass time frame, all medication were reviewed, dispensed, administered and documented per hospital policy by KAREN VELARDE.
--- NOTE | 2021-09-08 06:47 | NUR ---
Problems reprioritized. Patient report given, questions answered & plan of care reviewed with ANKUR BOYLE.
[2021-09-08] MEDS: docusate sod 100mg capsule PO SCH ×2 (07:48→19:16)
[2021-09-08] MEDS: minoxidil 2.5mg tablet PO SCH (07:48)
[2021-09-08] MEDS: multivitamins, therapeutics tablet PO SCH (07:48)
[2021-09-08] MEDS: carVEDilol 12.5mg tablet PO SCH ×2 (07:48→19:16)
[2021-09-08 07:49] LABS: BASOPHILS # (AUTO) 0.1 X10'3 (0-0.2); BASOPHILS % (AUTO) 0.7 % (0-1); EOSINOPHILS # (AUTO) 0.2 X10'3 (0-0.9); EOSINOPHILS % (AUTO) 1.6 % (0-6); HEMATOCRIT 35.2 % (42.0-52.0); HEMOGLOBIN 11.9 g/dl (14.0-17.9); LYMPHOCYTES # (AUTO) 2.6 X10'3 (1.1-4.8); LYMPHOCYTES % (AUTO) 22.9 % (21-51); MEAN CORPUSCULAR HEMOGLOBIN 34.9 PG (27.0-31.0); MEAN CORPUSCULAR HGB CONC 33.7 g/dL (33.0-36.5); MEAN CORPUSCULAR VOLUME 103.6 FL (78-98); MEAN PLATELET VOLUME 9.6 FL (7.4-10.4); MONOCYTES # (AUTO) 1.1 X10'3 (0-0.9); MONOCYTES % (AUTO) 9.6 % (2-12); NEUTROPHILS # (AUTO) 7.5 X10'3 (1.8-7.7); NEUTROPHILS % (AUTO) 65.2 % (42-75); PLATELET COUNT 320 X10'3 (140-440); RED BLOOD COUNT 3.39 X10'6 (4.70-6.10); RED CELL DISTRIBUTION WIDTH 12.7 % (11.5-14.5); WHITE BLOOD COUNT 11.6 X10'3 (4.5-11.0)
[2021-09-08] MEDS: thiamine 100mg tablet PO SCH (07:49)
[2021-09-08] MEDS: cholecalciferol (vitamin D3) 1,000 unit (25mcg) tablet PO SCH (07:49)
[2021-09-08] MEDS: K and/or MAG REPLACEMENT MC SCH ×2 (08:00→19:11)
[2021-09-08 09:16] LABS: ALANINE AMINOTRANSFERASE 30 U/L (12-78); ALBUMIN 2.9 G/DL (3.4-5.0); ALBUMIN/GLOBULIN RATIO 0.8 (1.1-1.5); ALKALINE PHOSPHATASE 132 IU/L (46-116); ASPARTATE AMINO TRANSFERASE 23 U/L (10-37); BILIRUBIN,TOTAL 0.7 MG/DL (0.1-1.0); BLOOD UREA NITROGEN 19 MG/DL (7-18); BUN/CREATININE RATIO 18.8 (5.4-32.0); CALCIUM 9.2 MG/DL (8.5-10.1); CREATININE 1.01 MG/DL (0.60-1.10); GLUCOSE 136 MG/DL (70-104); MAGNESIUM 2.3 MG/DL (1.5-2.4); TOTAL CARBON DIOXIDE 25.5 MMOL/L (24-32); TOTAL PROTEIN 6.5 G/DL (6.4-8.2); eGFR 73 ML/MIN
--- NOTE | 2021-09-08 10:01 | NUR ---
Dressing Change Changed dressing on L hip as the existing dressing was dated for 09/04/21. Area looks great, no redness or drainage. [place] intact. New dressing applied and dated.
[2021-09-08 12:27] VITALS: BP 95/41
[2021-09-08] MEDS: lactose-reduced food (Ensure High Protein) 237ml bottle PO SCH ×2 (12:57→19:20)
[2021-09-08 14:36] LABS: POTASSIUM 3.7 MMOL/L (3.3-5.1)
--- NOTE | 2021-09-08 17:56 | NUR ---
[place] documentation: I have reviewed and agree with all interventions, assessments performed and documented by Mounika BOYLE . [place] Medication Administration: For this medication-pass time frame, all medication were reviewed, dispensed, administered and documented per hospital policy by Mounika BOYLE .
[2021-09-08 18:09] VITALS: BP 119/48
--- NOTE | 2021-09-08 18:28 | NUR ---
Problems reprioritized. Patient report given, questions answered & plan of care reviewed with
--- NOTE | 2021-09-08 18:52 | NUR ---
Patient in room PCU 3023. I have received report from Nazanin BOYLE and Mounika BOYLE and had the opportunity to ask questions and assume patient care.
[2021-09-08] MEDS: enoxaparin 40mg/0.4ml syringe SUBCUT SCH (19:14)
[2021-09-08 22:00] VITALS: BP 125/53
[2021-09-09 02:00] VITALS: BP 124/53
[2021-09-09] MEDS: HYDROcodone/acetaminophen 10/325mg tab PO PRN ×2 (02:57→07:47)
--- NOTE | 2021-09-09 06:04 | NUR ---
Problems reprioritized. Patient report given, questions answered & plan of care reviewed with Nazanin BOYLE and Mounika BOYLE.
--- NOTE | 2021-09-09 06:28 | NUR ---
Patient in room U 3023. I have received report from Colleen BOYLE and had the opportunity to ask questions and assume patient care. Patient resting in bed in no acute distress.
--- NOTE | 2021-09-09 06:33 | NUR ---
Patient in room PCU 3023. I have received report from Colleen and had the opportunity to ask questions and assume patient care.
[2021-09-09 07:00] VITALS: BP 130/52
[2021-09-09 07:16] VITALS: BP 130/52
[2021-09-09] MEDS: docusate sod 100mg capsule PO SCH (07:42)
[2021-09-09] MEDS: multivitamins, therapeutics tablet PO SCH (07:43)
[2021-09-09] MEDS: carVEDilol 12.5mg tablet PO SCH (07:43)
[2021-09-09] MEDS: cholecalciferol (vitamin D3) 1,000 unit (25mcg) tablet PO SCH (07:43)
[2021-09-09] MEDS: thiamine 100mg tablet PO SCH (07:43)
[2021-09-09] MEDS: minoxidil 2.5mg tablet PO SCH (07:44)
[2021-09-09] MEDS: K and/or MAG REPLACEMENT MC SCH (08:00)
[2021-09-09 09:10] LABS: BASOPHILS # (AUTO) 0.1 X10'3 (0-0.2); BASOPHILS % (AUTO) 1.2 % (0-1); EOSINOPHILS # (AUTO) 0.2 X10'3 (0-0.9); EOSINOPHILS % (AUTO) 2.2 % (0-6); HEMATOCRIT 34.8 % (42.0-52.0); LYMPHOCYTES # (AUTO) 2.7 X10'3 (1.1-4.8); LYMPHOCYTES % (AUTO) 27.8 % (21-51); MEAN CORPUSCULAR HEMOGLOBIN 35.5 PG (27.0-31.0); MEAN CORPUSCULAR HGB CONC 34.5 g/dL (33.0-36.5); MEAN CORPUSCULAR VOLUME 103.1 FL (78-98); MEAN PLATELET VOLUME 9.5 FL (7.4-10.4); MONOCYTES # (AUTO) 0.8 X10'3 (0-0.9); MONOCYTES % (AUTO) 7.9 % (2-12); NEUTROPHILS # (AUTO) 5.9 X10'3 (1.8-7.7); NEUTROPHILS % (AUTO) 60.9 % (42-75); PLATELET COUNT 346 X10'3 (140-440); RED BLOOD COUNT 3.37 X10'6 (4.70-6.10); RED CELL DISTRIBUTION WIDTH 12.6 % (11.5-14.5); WHITE BLOOD COUNT 9.6 X10'3 (4.5-11.0)
[2021-09-09 09:45] LABS: ALANINE AMINOTRANSFERASE 29 U/L (12-78); ALBUMIN 2.9 G/DL (3.4-5.0); ALBUMIN/GLOBULIN RATIO 0.8 (1.1-1.5); ALKALINE PHOSPHATASE 132 IU/L (46-116); ANION GAP 9 (8-16); ASPARTATE AMINO TRANSFERASE 23 U/L (10-37); BILIRUBIN,TOTAL 0.7 MG/DL (0.1-1.0); BLOOD UREA NITROGEN 17 MG/DL (7-18); BUN/CREATININE RATIO 17.5 (5.4-32.0); CALCIUM 9.2 MG/DL (8.5-10.1); CHLORIDE 103 MMOL/L (99-107); CREATININE 0.97 MG/DL (0.60-1.10); GLUCOSE 121 MG/DL (70-104); MAGNESIUM 2.3 MG/DL (1.5-2.4); POTASSIUM 3.6 MMOL/L (3.5-5.1); SODIUM 137 MMOL/L (135-145); TOTAL CARBON DIOXIDE 25.5 MMOL/L (24-32); TOTAL PROTEIN 6.7 G/DL (6.4-8.2); eGFR 76 ML/MIN
--- NOTE | 2021-09-09 09:47 | NUR ---
Report was called at 0935 [phone] and given to Deandra RUIZ. Copy of transfer report was put in patients chart.
--- NOTE | 2021-09-09 10:36 | NUR ---
[facility] Patietn alert, oriented, and appropriate at time of DC. PIV was removed with cannula intact
== END 2021-09-09 10:28 | DRG 481 ==
LOC: ER 03:58 → ED HOLD 05:18 → MED 3N 08:05 → PCU 3S 18:04
PROVIDERS: ADMIT Internal Medicine; ATTEND Internal Medicine
PROC: 0QS704Z Reposition Left Upper Femur with Internal Fixation Device, Open Approach (ICD-10-PCS; principal; 2021-08-28 17:50)
DX: S72.142A Displaced intertrochanteric fracture of left femur, initial encounter for closed fracture (principal); E44.1 Mild protein-calorie malnutrition; F10.939 Alcohol use, unspecified with withdrawal, unspecified; I10 Essential (primary) hypertension; J44.9 Chronic obstructive pulmonary disease, unspecified; G47.33 Obstructive sleep apnea (adult) (pediatric); F17.200 Nicotine dependence, unspecified, uncomplicated; Y90.9 Presence of alcohol in blood, level not specified; Z20.822 Contact with and (suspected) exposure to COVID-19; E11.40 Type 2 diabetes mellitus with diabetic neuropathy, unspecified; K59.00 Constipation, unspecified; W01.0XXA Fall on same level from slipping, tripping and stumbling without subsequent striking against object, initial encounter; Y93.89 Activity, other specified; Y92.090 Kitchen in other non-institutional residence as the place of occurrence of the external cause; Z88.0 Allergy status to penicillin; Z79.84 Long term (current) use of oral hypoglycemic drugs; Y99.8 Other external cause status; Z83.3 Family history of diabetes mellitus; Z68.35 Body mass index [BMI] 35.0-35.9, adult; R58 Hemorrhage, not elsewhere classified
CPT/HCPCS: 36415; 70450; 73502; 76000; 80053; 82150; 82948; 83036; 83690; 83735; 83880; 84100; 84132; 84484; 85025; 85610; 85730; 86885; 86900; 86901; 87635; 93005; 93306; 94760; 96374; 97110; 97116; 97163; 97530; 99285; A4215; A4618; A6222; A6258; A6449; A7000; C1713; G0378; J0690; J1170; J1644; J1650; J1815; J2060; J2405; J2704; J2710; J3010; J3475; J3490; J7030; J7120; S0020